=== PATIENT | male | born 1980 | race Hispanic/Latino ===

== ENCOUNTER 2024-01-03 03:53 | Emergency (ER) | payer OTHER, SELFPAY | END 2024-01-03 04:05 | LOC: CSHERS 03:53 | DX: M54.50 Low back pain, unspecified (principal); F10.129 Alcohol abuse with intoxication, unspecified; I10 Essential (primary) hypertension; E11.9 Type 2 diabetes mellitus without complications; Y90.9 Presence of alcohol in blood, level not specified | CPT/HCPCS: 99283 ==